=== PATIENT | male | born 1960 | race Caucasian/White ===

== ENCOUNTER 2020-04-29 14:04 | Outpatient (REF) | payer MEDICAID, SELFPAY ==
[2020-04-29 17:40] LABS: Basophils Absolute Auto 0.1 X10*3/uL (0.0-0.2); Basophils Percent Auto 0.7 % (0-2); Eosinophils Absolute Auto 0.1 X10*3/uL (0.0-0.4); Eosinophils Percent Auto 0.7 % (0-4); Hematocrit 47.7 % (42-52); Hemoglobin 15.2 g/dl (14.0-18.0); Imm Gran Abs Auto 0.03 X10*3/uL (0.00-0.03); Imm Gran Pct Auto 0.3 % (0.0-0.4); Lymphocytes Absolute Auto 2.2 X10*3/uL (1.2-4.9); Lymphocytes Percent Auto 21.8 % (20-40); MANUAL DIFF FLAG NO; Mean Corpuscular HGB Conc 31.9 g/dl (31.0-36.0); Mean Corpuscular Hemoglobin 30.8 pg (27.0-33.0); Mean Corpuscular Volume 96.8 fL (80-98); Monocytes Absolute Auto 0.8 X10*3/uL (0.1-1.2); Monocytes Percent Auto 7.9 % (2-11); Neutrophils Percent Auto 68.6 % (45-73); Platelet Count 303 X10*3/uL (160-400); Red Blood Count 4.93 X10*6/uL (4.60-5.80); Red Cell Distribution Width 13.2 % (11.0-16.0); White Blood Count 10.1 X10*3/uL (4.8-10.8)
[2020-04-29 18:01] LABS: Alanine Aminotransferase 24 U/L (0-40); Albumin Level 4.2 g/dL (3.5-5.0); Alkaline Phosphatase 88 U/L (39-117); Anion Gap 14 (12-20); Aspartate Amino Transferase 20 U/L (5-37); Bilirubin Total 1.2 mg/dL (0.0-1.0); Blood Urea Nitrogen 16 mg/dL (9-16); Calcium 9.3 mg/dL (8.4-10.2); Carbon Dioxide 30 mmol/L (22-29); Chloride 103 mmol/L (96-108); Cholesterol 99 mg/dL; Estimated Glomerular Filt Rate > 60; Glucose Fasting 128 mg/dL (60-99); HDL Cholesterol 38 mg/dL; LDL Cholesterol Calculated 45 mg/dl; Potassium 5.6 mmol/l (3.3-5.1); Sodium 141 mmol/L (135-145); Total Protein 7.4 g/dL (6.5-8.0); Triglycerides 81 mg/dL
== END 2020-04-29 14:05 | disposition home or self-care (01) ==
LOC: HO.MANLDS 14:04
PROVIDERS: PCP Physician Assistant; Visit Provider Physician Assistant
DX: Z00.00 Encounter for general adult medical examination without abnormal findings (principal); Z13.6 Encounter for screening for cardiovascular disorders
CPT/HCPCS: 36415; 80053; 80061; 85025

== ENCOUNTER 2020-05-15 10:34 | Outpatient (REF) | payer MEDICAID, SELFPAY ==
[2020-05-15 13:22] LABS: Anion Gap 14 (12-20); Blood Urea Nitrogen 31 mg/dL (9-16); Calcium 8.7 mg/dL (8.4-10.2); Carbon Dioxide 28 mmol/L (22-29); Chloride 101 mmol/L (96-108); Estimated Glomerular Filt Rate > 60; Glucose Fasting 125 mg/dL (60-99); Potassium 5.2 mmol/l (3.3-5.1); Sodium 138 mmol/L (135-145)
== END 2020-05-15 10:35 | disposition home or self-care (01) ==
LOC: HO.MANLDS 10:34
PROVIDERS: PCP Physician Assistant; Visit Provider Physician Assistant
DX: E87.5 Hyperkalemia (principal)
CPT/HCPCS: 80048

== ENCOUNTER 2020-05-28 11:15 | Outpatient (REF) | payer MEDICAID, SELFPAY ==
[2020-05-28 14:10] LABS: Estimated Average Glucose 117 mg/dL; Hemoglobin A1c % 5.7 %
== END 2020-05-28 11:16 | disposition home or self-care (01) ==
LOC: HO.MANLDS 11:15
PROVIDERS: PCP Physician Assistant; Visit Provider Physician Assistant
DX: R73.01 Impaired fasting glucose (principal)
CPT/HCPCS: 83036

== ENCOUNTER 2021-05-05 14:03 | Outpatient (REF) | payer MEDICAID, SELFPAY ==
[2021-05-05 17:42] LABS: MANUAL DIFF FLAG NO
[2021-05-05 17:43] LABS: Basophils Percent Auto 0.5 % (0-2); Eosinophils Absolute Auto 0.2 X10*3/uL (0.0-0.4); Eosinophils Percent Auto 2.2 % (0-4); Hematocrit 42.4 % (42-52); Hemoglobin 13.6 g/dl (14.0-18.0); Imm Gran Abs Auto 0.03 X10*3/uL (0.00-0.03); Imm Gran Pct Auto 0.3 % (0.0-0.4); Lymphocytes Absolute Auto 2.7 X10*3/uL (1.2-4.9); Lymphocytes Percent Auto 30.3 % (20-40); Mean Corpuscular HGB Conc 32.1 g/dl (31.0-36.0); Mean Corpuscular Hemoglobin 30.6 pg (27.0-33.0); Mean Corpuscular Volume 95.3 fL (80-98); Mean Platelet Volume 10.1 fL (9.4-12.4); Monocytes Absolute Auto 0.8 X10*3/uL (0.1-1.2); Monocytes Percent Auto 8.5 % (2-11); Neutrophils Absolute Auto 5.1 X10*3/uL (2.0-8.3); Neutrophils Percent Auto 58.2 % (45-73); Platelet Count 285 X10*3/uL (160-400); Red Blood Count 4.45 X10*6/uL (4.60-5.80); Red Cell Distribution Width 13.8 % (11.0-16.0); White Blood Count 8.8 X10*3/uL (4.8-10.8)
[2021-05-05 18:02] LABS: Estimated Average Glucose 111 mg/dL; Hemoglobin A1c % 5.5 %
[2021-05-05 18:07] LABS: Alanine Aminotransferase 34 U/L (0-40); Albumin Level 4.3 g/dL (3.5-5.0); Alkaline Phosphatase 97 U/L (39-117); Anion Gap 14 (12-20); Aspartate Amino Transferase 31 U/L (5-37); Bilirubin Total 1.7 mg/dL (0.0-1.0); Blood Urea Nitrogen 16 mg/dL (9-16); Calcium 9.1 mg/dL (8.4-10.2); Carbon Dioxide 27 mmol/L (22-29); Chloride 104 mmol/L (96-108); Cholesterol 95 mg/dL; Estimated Glomerular Filt Rate > 60; Glucose Fasting 105 mg/dL (60-99); HDL Cholesterol 43 mg/dL; LDL Cholesterol Calculated 41 mg/dl; Sodium 140 mmol/L (135-145); Total Protein 7.3 g/dL (6.5-8.0); Triglycerides 55 mg/dL
== END 2021-05-05 14:04 | disposition home or self-care (01) ==
LOC: HO.MANLDS 14:03
PROVIDERS: PCP Physician Assistant; Visit Provider Physician Assistant
DX: I10 Essential (primary) hypertension (principal); R73.01 Impaired fasting glucose
CPT/HCPCS: 36415; 80053; 80061; 83036; 85025

== ENCOUNTER 2022-05-06 14:18 | Outpatient (REF) | payer MEDICAID, SELFPAY ==
[2022-05-06 17:30] LABS: MANUAL DIFF FLAG NO
[2022-05-06 17:39] LABS: Basophils Absolute Auto 0.1 X10*3/uL (0.0-0.2); Basophils Percent Auto 0.5 % (0-2); Eosinophils Absolute Auto 0.1 X10*3/uL (0.0-0.4); Eosinophils Percent Auto 1.4 % (0-4); Hematocrit 45.3 % (42.0-52.0); Hemoglobin 14.8 g/dl (14.0-18.0); Imm Gran Abs Auto 0.02 X10*3/uL (0.00-0.03); Imm Gran Pct Auto 0.2 % (0.0-0.4); Lymphocytes Absolute Auto 2.9 X10*3/uL (1.2-4.9); Lymphocytes Percent Auto 28.6 % (20-40); Mean Corpuscular HGB Conc 32.7 g/dl (31.0-36.0); Mean Corpuscular Hemoglobin 30.6 pg (27.0-33.0); Mean Corpuscular Volume 93.8 fL (80.0-98.0); Mean Platelet Volume 9.9 fL (9.4-12.4); Monocytes Absolute Auto 0.8 X10*3/uL (0.1-1.2); Monocytes Percent Auto 8.3 % (2-11); Neutrophils Absolute Auto 6.1 x10*3/uL (2.0-8.3); Platelet Count 278 X10*3/uL (160-400); Red Blood Count 4.83 X10*6/uL (4.60-5.80); Red Cell Distribution Width 13.6 % (11.0-16.0)
[2022-05-06 18:05] LABS: Alanine Aminotransferase 27 U/L (0-40); Albumin Level 4.6 g/dL (3.5-5.0); Alkaline Phosphatase 89 U/L (39-117); Anion Gap 18 (12-20); Aspartate Amino Transferase 30 U/L (5-37); Bilirubin Total 1.5 mg/dL (0.0-1.0); Blood Urea Nitrogen 22 mg/dL (9-16); Calcium 9.4 mg/dL (8.4-10.2); Carbon Dioxide 26 mmol/L (22-29); Chloride 103 mmol/L (96-108); Cholesterol 120 mg/dL; Estimated Glomerular Filt Rate > 60; Glucose Random 104 mg/dL (60-115); HDL Cholesterol 50 mg/dL; LDL Cholesterol Calculated 55 mg/dl; Potassium 4.7 mmol/L (3.3-5.1); Sodium 142 mmol/L (135-145); Total Protein 7.8 g/dL (6.5-8.0); Triglycerides 75 mg/dL
[2022-05-06 18:29] LABS: Prostate Specific Antigen 0.71 ng/mL (<0.05-4.0)
== END 2022-05-06 14:19 | disposition home or self-care (01) ==
LOC: HO.MANLDS 14:18
PROVIDERS: Internal Medicine; Visit Provider Physician Assistant
DX: Z00.00 Encounter for general adult medical examination without abnormal findings (principal); Z12.5 Encounter for screening for malignant neoplasm of prostate
CPT/HCPCS: 36415; 80053; 80061; 84153; 85025

== ENCOUNTER 2023-05-19 08:58 | Outpatient (REF) | payer MEDICARE, MEDICAID, SELFPAY ==
[2023-05-19 13:16] LABS: MANUAL DIFF FLAG NO
[2023-05-19 13:45] LABS: Basophils Absolute Auto 0.1 X10*3/uL (0.0-0.2); Basophils Percent Auto 0.5 % (0-2); Eosinophils Absolute Auto 0.1 X10*3/uL (0.0-0.4); Eosinophils Percent Auto 1.1 % (0-4); Hematocrit 48.7 % (42.0-52.0); Hemoglobin 15.4 g/dl (14.0-18.0); Imm Gran Abs Auto 0.01 X10*3/uL (0.00-0.03); Imm Gran Pct Auto 0.1 % (0.0-0.4); Lymphocytes Absolute Auto 4.7 X10*3/uL (1.2-4.9); Lymphocytes Percent Auto 51.4 % (20-40); Mean Corpuscular HGB Conc 31.6 g/dl (31.0-36.0); Mean Corpuscular Hemoglobin 30.1 pg (27.0-33.0); Mean Corpuscular Volume 95.1 fL (80.0-98.0); Monocytes Absolute Auto 0.6 X10*3/uL (0.1-1.2); Neutrophils Absolute Auto 3.7 x10*3/uL (2.0-8.3); Neutrophils Percent Auto 39.9 % (45-73); Platelet Count 257 X10*3/uL (160-400); Red Blood Count 5.12 X10*6/uL (4.60-5.80); White Blood Count 9.2 X10*3/uL (4.8-10.8)
[2023-05-19 13:51] LABS: Estimated Average Glucose 97 mg/dL
[2023-05-19 14:14] LABS: Alanine Aminotransferase 31 U/L (0-40); Albumin Level 4.1 g/dL (3.5-5.0); Alkaline Phosphatase 88 U/L (39-117); Anion Gap 12 (12-20); Aspartate Amino Transferase 37 U/L (5-37); Bilirubin Total 1.3 mg/dL (0.0-1.0); Blood Urea Nitrogen 18 mg/dL (9-16); Carbon Dioxide 29 mmol/L (22-29); Chloride 103 mmol/L (96-108); Cholesterol 116 mg/dL (<200); Estimated Glomerular Filt Rate > 60; Glucose Random 105 mg/dL (60-115); HDL Cholesterol 50 mg/dL (>40); LDL Cholesterol Calculated 57 mg/dL (<100); Potassium 3.9 mmol/L (3.3-5.1); Sodium 140 mmol/L (135-145); Total Protein 7.9 g/dL (6.5-8.0); Triglycerides 49 mg/dL (<150)
[2023-05-19 14:18] LABS: Prostate Specific Antigen 0.66 ng/mL (<0.05-4.0)
== END 2023-05-19 08:59 | disposition home or self-care (01) ==
LOC: HO.MANLDS 08:58
PROVIDERS: Visit Provider Physician Assistant
DX: Z00.00 Encounter for general adult medical examination without abnormal findings (principal)
CPT/HCPCS: 36415; 80053; 80061; 83036; 84153; 85025

== ENCOUNTER 2024-10-31 08:33 | Emergency (ER) | payer MEDICARE, SELFPAY ==
[2024-10-31] VITALS (8 sets, daily range): BP systolic 98–200; BP diastolic 64–100; PULSE 73–109; RESP 18–26; TEMP 36.3–36.7; O2SAT 96–100; BMI 37.6
--- NOTE | 2024-10-31 | ECG_ITS ---
Test Reason : syncope Blood Pressure : */* mmHG Vent. Rate : 82 BPM Atrial Rate : * BPM P-R Int : * ms QRS Dur : 86 ms QT Int : 386 ms P-R-T Axes : * -23 -26 degrees QTcB Int : 450 ms Atrial fibrillation Inferior infarct (cited on or before 03-Nov-2016) Cannot rule out Anterior infarct (cited on or before 31-Oct-2024) Abnormal ECG When compared with ECG of 31-Oct-2024 11:32, No significant change was found Referred By: Miguel Grier Electronically Signed By: SUNITA MONTEMAYOR
[2024-10-31 09:07] LABS: MANUAL DIFF FLAG NO
--- NOTE | 2024-10-31 09:12 | ED.EPISTAXIS ---
History of Present Illness General Chief Complaint: Epistaxis Stated Complaint: NOSEBLEED ON/OFF X1W PER EMS,ON ELIQUIS PER EMS Time Seen by Provider: 10/31/24 08:55 Source: patient Mode of arrival: EMS Limitations: no limitations History of Present Illness HPI Narrative: This is a 64 years old male presented to the emergency department with a chief complaint of epistaxis on for a week right nostril. He is anticoagulated with apixaban Location: Yes right nares Onset/current episode: Yes week(s) (1) Duration: Yes constant Context: Yes other anticoagulant use (Eliquis) Related Data Previous Rx's ?Medication ?Instructions ?Recorded metoprolol tartrate 50 mg tablet 50 mg PO BID #180 tabs 08/02/20 amlodipine 5 mg tablet 5 mg PO DAILY #30 tabs 03/18/21 amoxicillin 500 mg tablet 500 mg PO TID 5 days #15 tabs 10/31/24 Allergies Allergy/AdvReac Type Severity Reaction Status Date / Time No Known Allergies Allergy Unverified 10/31/24 08:50 [No Known Allergies*] Review of Systems Constitutional: Constitutional: Reports no additional constitutional complaints ENT: Reports other (Right epistaxis) [facility] Past Medical History [facility] Narrative: History of heart disease on Eliquis Social History Social History Advance Directives: Yes Advance Directives Information Provided: Yes Advance Directives on File: No Physical Exam Vital Signs: Vital Signs: Last Vital Signs Temp 98.1 F 10/31/24 15:12 Pulse 73 10/31/24 16:02 Resp 20 10/31/24 16:02 BP 98/67 10/31/24 16:02 Pulse Ox 98 10/31/24 15:12 O2 Del Method Room Air 10/31/24 15:12 BMI result Body Mass Index 37.6 Not acute distress vital signs stable Const: General: cooperative Nutritional Appearance: average body habitus Orientation/consciousness: patient oriented x3 Limitations: no limitations HEENT: Other: Right epistaxis present Head: Yes normal to inspection General nose exam: Normal external nose present and Other nasal findings present (Bleeding in the right nostril) Face and sinus: Yes normal facial exam Mouth: Normal oral and palatal mucosa present Throat: Yes posterior oropharynx normal Neck: Neck: Yes normal visual inspection Chest: Chest palpation & inspection: normal inspection of the chest Resp: Effort & Inspection: normal respiratory effort Auscultation: clear to auscultation bilaterally Cardio: Jugular venous distension: no JVD Rate: regular rate Rhythm: regular rhythm GI: Inspection: Yes normal to inspection Palpation (GI): Soft to palpation and not firm Auscultation: normal bowel sounds Neuro: General: patient oriented x3 Course Reevaluation(s) Reevaluation #1: Patient was initially packed with a Merocel packing right nostril at this time is bleeding again so the packing was removed and I placed rapid rhino 5.5 cm Time: 13:05 Reevaluation #2: Re-examined at this time no bleeding whatsoever anticipate discharge Time: 14:17 Reevaluation #3: Patient will be discharged home I discussed with himShashi he is taking Eliquis for AFib he will hold 2 dose Eliquis, I discussed benefit versus risk he is aware risk would be CVA patient agree on holding 2 doses of eliquis tonight and tomorrow am. Medications Administered Discontinued Medications Generic Name Dose Route Start Last Admin Trade Name Freq PRN Reason Stop Dose Admin Cocaine HCl 4 ml 10/31/24 12:54 10/31/24 13:28 Cocaine Hcl 4 % 4 Ml Solution TOPICAL 10/31/24 12:55 4 ml ONCE ONE Administration Protocol Lidocaine HCl 15 ml 10/31/24 09:11 10/31/24 09:39 Lidocaine Hcl Viscous 2 % 15 Ml Solution MUCOUS MEM 10/31/24 09:12 15 ml ONCE ONE Administration Medical Decision Making Lab Data 10/31/24 09:04 Labs: Lab Results 10/31/24 Range/Units 09:04 WBC 11.0 H (4.8-10.8) X10*3/uL RBC 4.54 L (4.60-5.80) X10*6/uL Hgb 14.2 (14.0-18.0) g/dl Hct 42.2 (42.0-52.0) % MCV 93.0 (80.0-98.0) fL MCH 31.3 (27.0-33.0) pg MCHC 33.6 (31.0-36.0) g/dl RDW 13.3 (11.0-16.0) % Plt Count 268 (160-400) X10*3/uL MPV 9.5 (9.4-12.4) fL Immature Gran % (Auto) 0.3 (0.0-0.4) % Neut % (Auto) 79.4 H (45-73) % Lymph % (Auto) 14.8 L (20-40) % [place] % (Auto) 4.4 (2-11) % Eos % (Auto) 0.6 (0-4) % Baso % (Auto) 0.5 (0-2) % Lymph # (Auto) 1.6 (1.2-4.9) X10*3/uL [place] # (Auto) 0.5 (0.1-1.2) X10*3/uL Eos # (Auto) 0.1 (0.0-0.4) X10*3/uL Baso # (Auto) 0.1 (0.0-0.2) X10*3/uL Abs Immat Gran (auto) 0.03 (0.00-0.03) X10*3/uL Absolute Neuts (auto) 8.8 H (2.0-8.3) x10*3/uL Absolute Nucleated RBC 0.000 (0.0-0.012) X10*3/uL Nucleated RBC % (auto) 0.0 (0.0-0.2) /100WBC PT 15.6 H (10.9-12.4) SEC INR 1.3 H (0.9-1.1) Procedures Epistaxis Control Time Out Performed: Yes Nostril: Yes right Nose prepped with: Yes cocaine 4% Direct inspection: Yes unable to visualize Epistaxis treatment: Yes other (Rapid rhino 5.5 cm) Results of treatment: Yes bleeding controlled Complications: Yes none Discharge Plan Discharge Clinical Impression: Epistaxis Patient Disposition: Home, Self-Care Instructions: Nosebleed (ED) Additional Instructions: Keep the packing in the right nostril until you see the nose and throat doctor, take antibiotic as directed if you can not have an appointment 3 days very return to the emergency room for packing removal Prescriptions: New amoxicillin 500 mg tablet 500 mg PO TID 5 Days Qty: 15 0RF No Action metoprolol tartrate 50 mg tablet 50 mg PO BID Qty: 180 3RF amlodipine 5 mg tablet 5 mg PO DAILY Qty: 30 2RF Rx Instructions: Must call to schedule cardiology appt for refills Referrals: Wilberto Lu [Physician] - 3 days Print Language: Danish
[2024-10-31 09:13] LABS: Basophils Absolute Auto 0.1 X10*3/uL (0.0-0.2); Basophils Percent Auto 0.5 % (0-2); Eosinophils Absolute Auto 0.1 X10*3/uL (0.0-0.4); Eosinophils Percent Auto 0.6 % (0-4); Hematocrit 42.2 % (42.0-52.0); Hemoglobin 14.2 g/dl (14.0-18.0); Imm Gran Abs Auto 0.03 X10*3/uL (0.00-0.03); Imm Gran Pct Auto 0.3 % (0.0-0.4); Lymphocytes Absolute Auto 1.6 X10*3/uL (1.2-4.9); Lymphocytes Percent Auto 14.8 % (20-40); Mean Corpuscular HGB Conc 33.6 g/dl (31.0-36.0); Mean Corpuscular Hemoglobin 31.3 pg (27.0-33.0); Mean Platelet Volume 9.5 fL (9.4-12.4); Monocytes Absolute Auto 0.5 X10*3/uL (0.1-1.2); Monocytes Percent Auto 4.4 % (2-11); Neutrophils Absolute Auto 8.8 x10*3/uL (2.0-8.3); Neutrophils Percent Auto 79.4 % (45-73); Platelet Count 268 X10*3/uL (160-400); Red Blood Count 4.54 X10*6/uL (4.60-5.80); Red Cell Distribution Width 13.3 % (11.0-16.0)
[2024-10-31] MEDS: Lidocaine HCl Viscous 2 % 15 ML SOLUTION MUCOUS MEM (09:39)
[2024-10-31 09:41] LABS: INTERNATIONAL NORM RATIO 1.3 (0.9-1.1); Prothrombin Time 15.6 SEC (10.9-12.4)
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
--- NOTE | 2024-10-31 10:45 | PC.NURSE ---
call KATELIN King [phone] for a ride home
--- NOTE | 2024-10-31 11:01 | PC.NURSE ---
Report received from DALTON Peterson. Taken over care at this time.
--- NOTE | 2024-10-31 11:22 | ECG_ITS ---
Test Reason : AFIB Blood Pressure : */* mmHG Vent. Rate : 73 BPM Atrial Rate : * BPM P-R Int : * ms QRS Dur : 92 ms QT Int : 386 ms P-R-T Axes : * -19 -20 degrees QTcB Int : 425 ms Atrial fibrillation Inferior infarct (cited on or before 03-Nov-2016) Anterior infarct , age undetermined Abnormal ECG When compared with ECG of 03-Nov-2016 11:26, Anterior infarct is now Present T wave inversion no longer evident in Lateral leads Referred By: Miguel Grier Electronically Signed By: SUNITA MONTEMAYOR
[2024-10-31] MEDS: Cocaine HCl 4 % 4 ML SOLUTION TOPICAL (13:28)
--- NOTE | 2024-10-31 17:10 | PC.NURSE ---
Pt. attempted to ambulate to restroom, even though instructed to notify someone for assistance. Pt. ambulate to restroom. An EMS personnel had seen pt. looking dizzy and trying to open a door, to what he thought was the bathroom, pt. then grabbed by the EMS personnel and brought sown to the floor. made aware and notified.
[2024-10-31 17:12] LABS: Glucose, Whole Blood 121 mg/dL (60-115)
== END 2024-10-31 19:45 | disposition home or self-care (01) ==
PROVIDERS: Emergency Provider Emergency Medicine
DX: R04.0 Epistaxis (principal); R42 Dizziness and giddiness; I48.91 Unspecified atrial fibrillation; Z79.01 Long term (current) use of anticoagulants; Z79.899 Other long term (current) drug therapy
CPT/HCPCS: 30901; 36415; 82947; 85025; 85610; 93005; 99284; 99285; C9143

== ENCOUNTER → 2024-10-31 11:22 | Outpatient (BNV) | payer MEDICARE, SELFPAY | PROVIDERS: Emergency Provider Emergency Medicine; Visit Provider Internal Medicine | DX: I48.91 Unspecified atrial fibrillation (principal); I25.2 Old myocardial infarction | CPT/HCPCS: 93010 ==

== ENCOUNTER 2024-11-02 07:13 | Emergency (ER) | payer MEDICARE, SELFPAY ==
[2024-11-02 07:15] VITALS: BP 126/82; PULSE 86; RESP 16; O2SAT 98; BMI 31.9
--- OUTSIDE RECORDS SUMMARY | 2024-11-02 07:28 | XMS_ITS | Data Portability ---
Author Organization [facility] Service Address [address] [place] [address] Assessment No assessment recorded. Plan of Treatment Reminders Order Date Submit Date Provider Last Modified By Organization Details Last Modified Time Details Appointments ANNUAL EXAM 2024 01:30P CA MISTRY Not available Not available Not available Lab CBC w/ auto diff 2023 024 [facility], [address] [place] [address], [id number], 06/12/2024 13:32:49 CMP, serum or plasma 2023 024 [facility], [address] [place] [address], [id number], 06/12/2024 13:44:29 lipid panel, blood 2023 024 [facility], [address] [place] [address], [id number], 06/12/2024 14:14:02 PSA, serum or plasma 2023 024 [facility], [address] [place] [address], [id number], 06/12/2024 14:49:12 hemoglobi n A1c, QN, blood 2023 024 [facility], [address] [place] [address], [id number], 06/12/2024 14:10:01 CBC w/ auto diff 2022 023 [facility], [address] [place] [address], [id number], 05/11/2023 13:44:21 CMP, serum or plasma 2022 [facility], [address] [place] [address], [id number], 05/20/2023 16:12:08 lipid panel, blood 2022 [facility], [address] [place] [address], [id number], 05/11/2023 13:44:21 PSA, serum or plasma 2022 [facility], [address] [place] [address], [id number], 05/11/2023 13:44:21 hemoglobi n A1c, QN, blood 2022 [facility], [address] [place] [address], [id number], 05/11/2023 13:44:21 CMP, serum or plasma 2021 [facility], [address] [place] [address], [id number], 05/08/2022 08:05:10 lipid panel, blood 2021 [facility], [address] [place] [address], [id number], 05/06/2022 13:47:48 CBC w/ auto diff 2021 [facility], [address] [place] [address], [id number], 05/06/2022 13:47:48 PSA, serum or plasma 2021 [facility], [address] [place] [address], 46904, 05/06/2022 13:47:48 CMP, serum or plasma 2020 [facility], [address] [place] [address], [id number], 05/06/2021 11:38:22 hemoglobi n A1c, QN, blood 2020 [facility], [address] [place] [address], [id number], 05/05/2021 13:43:29 lipid panel, blood 2020 [facility], [address] [place] [address], [id number], 05/05/2021 13:43:30 CBC w/ auto diff 2020 [facility], [address] [place] [address], [id number], 05/05/2021 13:43:29 lipid panel, blood 2019 [email or web address] 10 [facility], [address] [place] [address], [id number], 05/06/2020 08:12:46 CBC w/ auto diff 2019 [facility], [address] [place] [address], 78606, 04/29/2020 13:53:13 CMP, serum or plasma 2019 020 [email or web address] 10 [facility], [address] [place] [address], 66060, 04/30/2020 07:59:30 Referral general surgeon referral 2023 024 [email or web address] [facility], [address] [place], [address], 05/17/2024 15:16:08 general surgeon referral 2022 023 nell [facility], [address] [place], [address], 05/11/2023 14:20:10 Procedures None recorded. Surgeries None recorded. Imaging None recorded. Medication Orders amlodipin e 5 mg tablet 2023 024 CEFERINO Not available 05/17/2024 13:43:53 metoprolo l tartrate 50 mg tablet 2021 022 CEFERINO [facility], [address] [place] [address], [id number], 05/06/2022 13:54:42 metoprolo l tartrate 50 mg [...] Organization Details Recorded Time Essential hypertens ion 93698383 Active 2018 MOHIT Parker [address] [place] [address], [id number], [facility] 9 13:51:25 Hernia of anterior abdominal wall 570105147 Active 2021 CA HART [address] [place] [address], [phone], [facility] 2 13:57:51 Chronic systolic heart failure 531649096 Active 2022 CA HART [address] [place], [address], [facility] 3 13:36:30 Umbilical hernia 559395642 Active 2023 CA HART [address] [place], [address], [facility] 4 13:48:12 Atrial fibrillat ion 03590155 Active 2017 [facility] version [facility] 8 16:11:58 Pulmonary hypertens ion 06489138 Active 2017 moderate -Sever [facility] 8 16:11:47 Acute non-ST segment elevation myocardia l infarctio n 878148027 Active 2017 [facility] 8 16:15:30 Systolic heart failure 335816685 Active 2017 [facility] 8 16:15:59 Problem Notes None recorded. Medical [...] Address Organization Details Last Updated DateTime 0 968255. 15 g 46.7 kg/m2 170.82 cm 98 /min 96 % 96 % 142 mm[Hg] 98 mm[Hg] Radha Mott [facility] 0 13:33:00 Date Recorded Body height Body mass index (BMI) Body weight Heart rate Oxygen saturation Oxygen saturation in Arterial blood by Pulse oximetry Systolic blood pressure Diastolic blood pressure Provider Name and Address Organization Details Last Updated DateTime 1 170.82 cm 39.4 kg/m2 770072. 31 g 91 /min 97 % 97 % 132 mm[Hg] 92 mm[Hg] CA HART [address] [place], [address] [place] [address] Internal Medicine 1 13:27:24 Date Recorded Body height Body mass index (BMI) Body weight Oxygen saturation Oxygen saturation in Arterial blood by Pulse oximetry Heart rate Systolic blood pressure Diastolic blood pressure Provider Name and Address Organization Details Last Updated DateTime 2 170.82 cm 40.5 kg/m2 676196. 17 g 98 % 98 % 102 /min 140 mm[Hg] 82 mm[Hg] Luz Marina Castellon [facility] 2 13:36:17 Date Recorded Body height Body mass index (BMI) Body weight Heart rate Oxygen saturation Oxygen saturation in Arterial blood by Pulse oximetry Systolic blood pressure Diastolic blood pressure Provider Name and Address Organization Details Last Updated DateTime 3 170.82 cm 39.7 kg/m2 460588. 57 g 83 /min 97 % 97 % 146 mm[Hg] 92 mm[Hg] Yuliya Nadia [facility] 3 13:27:11 Date Recorded Body height Body mass index (BMI) Body weight Heart rate Oxygen saturation Oxygen saturation in Arterial blood by Pulse oximetry Systolic blood pressure Diastolic blood pressure Provider Name and Address Organization Details Last Updated DateTime 4 170.82 cm 33.7 kg/m2 48326.0 1 g 88 /min 98 % 98 % 118 mm[Hg] 82 mm[Hg] Rebekah Castelan [facility] 4 13:32:13 Social History Question Answer Notes LastModified by [employer] ion Details LastModified Time Tobacco Smoking Status Former Smoker Not Available [facility] 05/14/2020 03:36:24 What Was The Date Of Your Most Recent Tobacco Screening? 05/17/2024 [email or web address] Information not available 05/17/2024 How Many Years Have You Smoked Tobacco? 10 [id number] Information not available 05/14/2020 Do You Or [...] Diagnosis Note 2011 Wanda Silva NP, [facility] [address] [facility] [address] 11/17/2017 11:45:49 11/17/2017 16:55:29 Atrial fibrillation 43641243 I48.0 follow with cardiology , ? cardiovers ion on Eliquis Pulmonary hypertension 41755466 I27.20 has upcoming echo, follow Coronary arteriosclerosis in [place] artery 5031444586 107 I25.10 continue medication s, walk as tolerated 4551 Wanda Silva NP, S [facility] [address] [facility] [address] 01/17/2018 10:44:04 01/17/2018 15:33:40 Coronary arteriosclerosis 67762495 I25.10 resubmitte d paperwork for coverage of Eliquis Essential hypertension 24204162 I10 f/u 1 week in office Paroxysmal atrial fibrillation 258110583 I48.0 continue amiodarone 5005 Wanda Silva NP, S [facility] [address] [facility] [address] 01/25/2018 11:27:27 01/26/2018 10:10:52 Paroxysmal atrial fibrillation 822983773 I48.0 continue amiodarone , f/u with Dr. Christina Pulmonary hypertension 25132643 I27.20 follow, no changes-co ntinue lisinopril Chronic sy stolic heart failure 655713698 I50.22 continue efforts at weight loss and healthy diet 9687 Wanda Silva NP, S [facility] [address] [facility] [address] 04/26/2018 10:20:36 04/27/2018 14:07:47 Adult health examination 248913597 Z00.01 Active or passive immunization 191714438 Z23 Thyroid [address] imulating hormone level above reference range 223644320 R79.89 Systolic h eart failure 591710668 I50.[address] Christina Pulmonary hypertension 02744904 I27.20 discuss weight loss, healthy diet 91275 October MOHIT Parker [facility] [address] [facility] [address] [facility] [place] [place] [address] 02/17/2019 13:34:19 02/17/2019 14:00:13 Paroxysmal atrial fibrillation 084871651 I48.0 sees cardio Pulmonary hypertension 99533784 I27.20 Chronic sy stolic heart failure 471560640 I50.22 continue efforts at weight loss and healthy diet Acute non- ST segment elevation myocardial infarction 638948198 I21.4 Essential hypertension 00464642 I10 stable 48969 CA HART [facility] [address] [facility] [address] 04/29/2020 13:24:02 04/29/2020 15:59:41 Active or passive immunization 779350765 Z23 refuses flu shot and shingles shot Adult heal th examination 132748851 Z00.00 will have him do labs will monitor BP at next appt, if still elevated will increase lisinopril Screening for cardiovascular system disease 161683987 Z13.6 [place] [address] CA HART [facility] [address] [facility] [address] 05/05/2021 13:17:00 05/05/2021 14:32:03 Active or passive immunization 255299831 Z23 refuses flu shot and shingles shotdiscus sed the vaccine and the options available for the COVID shot Adult heal th examination 043679949 Z00.00 will have him do labs will monitor BP at next appt, if still elevated will increase lisinopril Atrial fibrillation 4943 6004 I48.19 stable Essential hypertension 28970011 I10 stable Chronic sy stolic heart failure 906161837 I50.22 stable Acute non- ST segment elevation myocardial infarction 814854061 I21.4 stable Impaired f asting glycemia 728736851 R73.01 will fu with recheck 48523 CA HART [facility] [address] [facility] [address] 05/06/2022 13:20:07 05/08/2022 09:03:00 Active or passive immunization 791183933 Z23 refuses flu shot and shingles shotdiscus sed the vaccine and the options available for the COVID shot Adult [facility] th examination 583841606 Z00.00 will have him do labs will monitor BP at next appt, if still elevated will increase lisinopril Essential hypertension 02554683 I10 stable Hernia of anterior abdominal wall 209697007 K43.9 will f/u with general surgery 48024 CA HART [facility] [address] [facility] [address] 05/11/2023 13:19:23 05/11/2023 14:16:52 Chronic systolic heart failure 357789014 I50.22 stable Acute non- ST segment elevation myocardial infarction 229231161 I21.4 stable Atrial fibrillation 4943 6004 I48.19 stable Adult heal th examination 241576592 Z00.00 BP is finecardio logist Hernia of anterior abdominal wall 371950568 K43.9 will f/u with general surgery 101128 CA HART [facility] [address] [facility] [address] 05/17/2024 13:23:28 05/17/2024 15:16:08 Active or passive immunization 655312727 Z23 refuses flu shot and shingles shotdiscus sed the vaccine and the options available for the COVID shot Adult [facility] th examination 707656562 Z00.00 BP is finecardio logist Depression screening 171 150303 Z13.31 SCREENING NEGATIVE Essential hypertension 07242400 I10 needs refill Umbilical hernia 0657509 07 K42.9 will set up with general [...] [place]IOR [place] 20[place] - [facility] (MEDICAID) Alan Wilson Landen [id number] Alan Schuster 05/05/2021 1 [place]IOR [place]22 - [facility] (MEDICAID) Alan Katie Schuster [id number] Alan Schuster 05/06/2022 1 [place]IOR [place] 2022 - [facility] (MEDICAID) Alan Katie Schuster [id number] Alan Schuster 05/11/2023 2 [place] Alan Schuster [id number] Alan Schuster 05/17/2024 1 [place] [employer] Alan Schuster [id number] Alan Schuster 05/17/2024 2 [place] Alan Katie Schuster [id number] Alan Schuster Notes Date Note Type Note [...] appt will adjust medication CA HART [address] [place], [address], [facility] 04/29/2020 13:54:13 1 [...] was excellent last check CA HART [address] [place], [address], [facility] 05/05/2021 13:48:40 2 [...] hearing Vision:no vision problems CA HART [address] [place], [address], [facility] 05/06/2022 14:15:54 3 [...] for a couple of days CA HART [address] [place] [address], [address], [facility] 05/11/2023 13:57:50 4 [...] ankle swelling, orthopnea, palpitations CA HART [address] [place], [address], [facility] 05/17/2024 13:54:20
--- NOTE | 2024-11-02 08:32 | ED_ITS ---
HPI - General Adult General Chief complaint: Wound/Laceration Stated complaint: Removal of packing from nose Time Seen by Provider: 11/02/24 08:32 History of Present Illness ED Provider: Jacob FROST narrative: The patient is a 64-year-old male who was on apixaban because of atrial fibrillation. He was seen at the emergency room here 2 days ago because of a right-sided nosebleed. When he was here 2 days ago the 1st intervention was a Merocel nasal packing which was not successful in stopping his bleeding. He was then given a rapid rhino with balloon inflation. This controlled the bleeding. He was discharged on amoxicillin. He was advised to hold his apixaban for 2 days. He was referred to ENT but came here instead today for packing removal. He has had no ongoing bleeding at home. Related Data Previous Rx's ?Medication ?Instructions ?Recorded metoprolol tartrate 50 mg tablet 50 mg PO BID #180 tabs 08/02/20 amlodipine 5 mg tablet 5 mg PO DAILY #30 tabs 03/18/21 amoxicillin 500 mg tablet 500 mg PO TID 5 days #15 tabs 10/31/24 Allergies Allergy/AdvReac Type Severity Reaction Status Date / Time No Known Allergies Allergy Unverified 11/02/24 07:18 [No Known Allergies*] Review of Systems Review of Systems: Yes all other systems are reviewed and are negative [facility] Social History Social History Alcohol intake: former Smoked in Last 30 Days: No Use of substances other than those prescribed or required for medical reasons: Yes Substance Use Type: Marijuana Advance Directives: No Advance Directives Information Provided: Yes Physical Exam ED Vital Signs: Vital Signs - 24 hr 11/02/24 07:15 11/02/24 09:16 11/02/24 09:22 Temperature 98.1 F 98.1 F Pulse Rate 86 82 82 Respiratory Rate 16 20 20 Blood Pressure 126/82 112/63 112/63 Pulse Oximetry 98 99 99 Oxygen Delivery Method Room Air Room Air Room Air BMI result Body Mass Index 31.9 Const Other: The patient is awake and alert. He has an obvious nasal packing in his right nostril. He does not seem in distress or pain or any respiratory difficulty. He is pleasant and cooperative. HENMT Other: The patient had a rapid rhino type nasal packing in the right nostril. The airway was clear. No blood in the posterior pharynx. I deflated the balloon and gently removed the packing without incident or bleeding. I examined the mucosa of the right nasal passage and did not seem any obvious site of recent bleeding. I did not see anything to cauterize. When I removed the nasal pack there was some blood at the distal end of the pack suggesting the bleeding site might has been fairly deep. Eyes General: appearance normal, both eyes and all related structures Neck Neck: Yes normal visual inspection and Yes full ROM Resp Effort & Inspection: normal respiratory effort Auscultation: clear to auscultation bilaterally Cardio Other: The patient had an irregular rate and rhythm, no murmur Skin Other: Skin is dry and unremarkable Neuro Other: The patient is awake and alert with a normal mental status. Cranial nerves are grossly intact. He moves his extremities symmetrically. He walks with a cane but walks steadily Medications Administered Discontinued Medications Generic Name Dose Route Start Last Admin Trade Name Freq PRN Reason Stop Dose Admin Oxymetazoline HCl 2 spray 11/02/24 09:10 11/02/24 09:17 Oxymetazoline Hcl 0.05 % Nasal 15 Ml [place] NOSTRIL-B 11/02/24 09:11 2 spray ONCE ONE Administration Medical Decision Making Medical Decision Making [facility] Narrative: The patient is a 64-year-old male who presents 2 days after having had a rapid rhino placed in his right nostril for a nosebleed. He is on Eliquis. He held his Eliquis for a few doses but took a dose this morning. He has had no recurrence of bleeding. No blood down the back of his throat. He has been on amoxicillin. He has not felt ill. I deflated the balloon. There was only about 3 mL of air in the balloon. I then gently put traction on the packing tubing and the pack came out easily. There was some blood at the distal end of the packing suggesting the bleed might has been fairly deep in the nostril. There was no recurrence of bleeding. I examined the right nostril and did not see any stigmata of recent bleeding or any site of recent bleeding that might be amenable to cauterization by me. The patient was given 2 squirts of oxymetazoline in each nostril. He was observed. There was no recurrence of bleeding. He was discharged to follow up with the ENT. He may resume his apixaban. He should stop the amoxicillin. He should also follow up with his PCP if he has any ongoing symptoms of concern. He was advised to avoid hot food and beverages for the next several days. Discharge Plan Discharge Clinical Impression: Encounter for removal of nasal packing Patient Disposition: Home, Self-Care Instructions: Nosebleed (ED) Additional Instructions: You may resume your normal use of apixaban (Eliquis). You may stop taking the amoxicillin. Avoid hot beverages for several days. Please contact Dr. Lu's office for an appointment with the an ENT s pecialist. If you are feeling unwell in any other way please follow up with your regular doctor's office. Return to the emergency room if significantly worse. Prescriptions: No Action metoprolol tartrate 50 mg tablet 50 mg PO BID Qty: 180 3RF amlodipine 5 mg tablet 5 mg PO DAILY Qty: 30 2RF Rx Instructions: Must call to schedule cardiology appt for refills amoxicillin 500 mg tablet 500 mg PO TID 5 Days Qty: 15 0RF Referrals: Christiano Alarcon MD [Physician] - (s/p nose bleed) Wilberto Lu [Physician] - (epistaxis) Interventions: ED Discharge Assessment Last Done: 11/02/24 09:22 Discharge Date/Time: 11/02/24 09:23 Print Language: Citizen [place]
[2024-11-02 09:16] VITALS: BP 112/63; PULSE 82; RESP 20; TEMP 36.7; O2SAT 99
[2024-11-02] MEDS: Oxymetazoline HCl 0.05 % Nasal 15 ML SPRAY 2 SPRAY NOSTRIL-B (09:17)
[2024-11-02 09:22] VITALS: BP 112/63; PULSE 82; RESP 20; TEMP 36.7; O2SAT 99
== END 2024-11-02 09:23 | disposition home or self-care (01) ==
PROVIDERS: Emergency Provider Emergency Medicine
DX: Z48.01 Encounter for change or removal of surgical wound dressing (principal); R04.0 Epistaxis; I48.91 Unspecified atrial fibrillation; Z79.01 Long term (current) use of anticoagulants
CPT/HCPCS: 99283; 99284